=== PATIENT | male | born 1995 | race Native Hawaiian/Other Pacific Islander ===

== ENCOUNTER 2018-09-26 16:10 | Emergency (ER) | payer BC ==
[~2018-09-26] VITALS: Ht 170.2 cm; Wt 51.7 kg
[2018-09-26 16:54] LABS: PLATELET COUNT 258 K/uL (142-355)
[2018-09-26 17:01] LABS: POTASSIUM 4.2 mmol/L (3.6-5.2)
[2018-09-26] MEDS ORDERED: TRAZ50TA36 PO (19:21)
[2018-09-26] MEDS ORDERED: TRILEPTAL150 MG PO (19:21)
[2018-09-26 21:03] VITALS: BP 114/71; TEMP 98.5
== END 2018-09-26 21:03 | disposition other institution (70) ==
LOC: ED 16:10
PROVIDERS: Emergency Medicine
DX: R45.851 Suicidal ideations (principal)
CPT/HCPCS: 36415; 80053; 80307; 80320; 80329; 81000; 85027; 99285